=== PATIENT | male | born 1980 | race Caucasian/White ===

== ENCOUNTER 2017-08-17 13:43 | Inpatient (IN) | payer OTHER, SELFPAY ==
[~2017-08-17 13:43] MED LIST: ISOVUE-370 76%-LOCM 1 ML ONE
[2017-08-17 15:16] LABS: #Eosinphils 0.1 thou/uL (0.0-0.7); #Neutrophils 8.5 thou/uL (1.40-6.50); %Basophils 0.1 % (0.0-1.0); %Eosinophils 1.2 % (0.0-10.0); %Lymphocytes 9.5 % (21.0-51.0); %Monocytes 9.2 % (0.0-10.0); Hemoglobin 14.9 g/dL (14.0-18.0); Mean Corpuscular HGB CONC 33.4 g/dL (32.0-36.0); Mean Corpuscular Hemoglobin 30.4 pg (27.0-31.0); Mean Corpuscular Volume 91.1 fl (80.0-94.0); Mean Platelet Volume 7.5 fL (7.4-10.4); Platelet Count 279 thou/uL (130-400); RBC Distribution Width 11.6 % (11.5-14.5); Red Blood Cell (RBC) Count 4.91 mill/uL (4.70-6.10); White Blood Cell (WBC) Count 10.6 thou/uL (4.8-10.8)
[2017-08-17] MEDS ORDERED: Ondansetron HCl/PF 4 MG/2 ML Vial ONE (15:18)
[2017-08-17] MEDS ORDERED: Fentanyl 100 MCG/2 ML VIAL ONE (15:19)
[2017-08-17 15:38] LABS: ALT (SGPT) 16 U/L (8-55); AST (SGOT) 19 U/L (5-34); Albumin 4.3 g/dL (3.5-5.0); Alkaline Phosphatase 64 U/L (40-150); Anion Gap 15 mmol/L (10-20); BUN (Urea Nitrogen) 6 mg/dL (8.9-20.6); Bilirubin, Total 0.5 mg/dL (0.2-1.2); Calc. Creatinine Clearance 0 mL/min (70-130); Calcium 9.2 mg/dL (7.8-10.44); Carbon Dioxide 23 mmol/L (22-29); Chloride 101 mmol/L (98-107); Estimated GFR-MDRD Greater than 90; Globulin 2.7 g/dL (2.4-3.5); Glucose 90 mg/dL (70-105); Lipase 14 U/L (8-78); Potassium 3.9 mmol/L (3.5-5.1); Sodium 135 mmol/L (136-145)
--- NOTE | 2017-08-17 15:42 | CT ---
CT OF ABDOMEN AND PELVIS PERFORMED WITH INTRAVENOUS CONTRAST ENHANCEMENT: 08/17/17 HISTORY: Right lower quadrant pain. The lung bases are clear. The liver, spleen, pancreas, and gallbladder regions appear unremarkable. Right and left adrenal glands and right and left kidneys are normal in appearance. There is no signif icant periaortic or mesenteric adenopathy. There is evidence of bowel wall thickening of the terminal ileum. This is a fairly long segment with bowel wall thickening. The appendix is normal. There is some free fluid tracking along the cecum and actually extending into a fat containing right inguinal hernia. There is free fluid deep within the pelvis also seen. IMPRESSION: Bowel wall thickening over a fairly long segment of the terminal ileum with some free fluid tracking along the cecum into a fat containing right inguinal hernia as well as some free fluid in the cul-de- sac. This bowel wall thickening in a patient of this age would be most likely related to an inflammat ory process such as Crohn's disease, ischemic or infectious process would be considered less likely b ut not excluded. POS: MARINO
[2017-08-17] MEDS ORDERED: metroNIDAZOLE 500 MG/100 ML BAG ONE (16:09)
[2017-08-17 16:49] LABS: Bilirubin Negative (Negative); Blood, Urine Negative (Negative); Clarity CLEAR (Clear); Glucose, Urine (Dipstick) Negative (Negative); Leukocyte Negative (Negative); Nitrite Negative (Negative); Protein, Urine (Dipstick) Negative (Neg-Trace); Specific Gravity, Urine 1.025 (1.002-1.036); Urobilinogen 0.2 mg/dL (0.2-1.0)
[2017-08-17] MEDS ORDERED: Ondansetron ODT 4 MG TAB SL PRN (18:10)
[2017-08-17] MEDS ORDERED: Fentanyl 100 MCG/2 ML VIAL SLOW IVP PRN (18:10)
[2017-08-17] MEDS ORDERED: Ondansetron HCl/PF 4 MG/2 ML Vial IVP PRN (18:10)
[2017-08-17] MEDS ORDERED: Sodium Chloride 0.9% 1,000 ML IV SCH (18:15)
--- NOTE | 2017-08-17 18:22 | PDOC.EVN ---
Event Note - Event Note Event Note: 1. colitis. terminal ileitis 2. abdominal pain plan: see orders
[2017-08-17] MEDS ORDERED: Labetalol 100 MG TAB PO PRN (18:25)
[2017-08-17] MEDS: Sodium Chloride 0.9% 1,000 ML IV SCH (18:38)
[2017-08-17 18:39] VITALS: BMI 25.0
--- NOTE | 2017-08-17 20:47 | CON ---
DATE OF CONSULTATION: 08/17/2017 REASON FOR CONSULTATION: Terminal ileitis. CONSULTING PHYSICIAN: Dr. Scottie Forrest. HISTORY OF PRESENT ILLNESS: The patient is a 37-year-old male with past medical history of periphera l neuropathy and hypertension, presenting with acute onset of abdominal pain. He said that the patie nt states that he was in his usual state of health until approximately 2 days ago when he had the acu te onset of right lower quadrant abdominal pain, characterized as sharp/stabbing in nature, nonradiat ing, and with a severity of 8-9/10. The pain is worse with movement and eating both solids and liqui ds, better with lying still and not having a bowel movement. The pain was also initially associated with increased diarrhea, having approximately 3-4 semisolid to watery bowel movements during the init ial first 24 hours; however, after this initial bout of diarrhea, he has not had any additional bowel movements. Associated symptoms include mild nausea without vomiting, subjective fevers and chills. The patient currently denies any nausea, vomiting, fevers, chills, hematemesis, melena, hematochezia , odynophagia, dysphagia, new rashes, new arthropathy, sudden changes in vision or recent exposure to sick contacts. Of note, the patient states that he ate deviled eggs the night prior to the onset of his symptoms ki t had been in his fridge for approximately 5-7 days prior to consumption. 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 While in the E R, he was ultimately treated with IV fluids and oral antibiotics. REVIEW OF SYSTEMS: Ten category review of systems was obtained with all responses negative except fo r the pertinent positives as listed in the HPI. PAST MEDICAL HISTORY: As per HPI. PAST SURGICAL HISTORY: None. FAMILY HISTORY: Stroke, diabetes, and cirrhosis?, no stated complaints of inflammatory bowel disease or GI malignancy. SOCIAL HISTORY: He drinks approximately 2-3 beers daily. Denies any tobacco or illicit drug use. OUTPATIENT MEDICATIONS: None. ALLERGIES: CITRIC ACID. PHYSICAL EXAMINATION: VITAL SIGNS: Temperature of 97.9, pulse 69, blood pressure 125/81, respiratory rate 20, satting 98% on room air. GENERAL: The patient is lying in bed, in mild distress. He is alert and oriented x4. NECK: Supple. No JVD noted. CARDIOVASCULAR: Regular rate and rhythm with no discernible murmurs, gallops or rubs. RESPIRATORY: Clear to auscultation bilaterally with no discernible wheezes or rales. ABDOMEN: Abdominal hyperactive bowel sounds. Soft, nondistended. Tenderness to palpation in all ab dominal quadrants, but most especially in the right lower quadrant. Rebound tenderness present. EXTREMITIES: No cyanosis, clubbing or edema. LABORATORY DATA: CBC with a white blood cell count 10.6, hemoglobin 14.9, hematocrit 44.7, platelets 279. Chemistry with a sodium of 135, potassium 3.9, chloride 101, CO2 23, BUN 6, creatinine 0.82, g lucose 90, AST 19, ALT 16, alkaline phosphatase 64, total bilirubin 0.5, lipase 14, albumin 4.3. IMAGING STUDIES: CT of the abdomen and pelvis obtained on 08/17/2017 showed a long segment of bowel wall thickening of the terminal ileum with free fluid surrounding the cecum and extending into the ri ght pericolic gutter. ASSESSMENT AND PLAN: The patient is a 37-year-old male with past medical history of peripheral neuro pauly and hypertension, presenting with acute onset of abdominal pain and diarrhea. Abdominal pain/terminal ileitis. The patient is presenting with acute onset of right lower quadrant abdominal pain with no clear inciting factors with the pain exhibiting rebound tenderness on physical examination. He does have a history of recent consumption of deviled eggs that had been in the refr igerator for some time, raising concern for possible infectious etiology for his current pain and sola rrhea. 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 With his history o f dysentery, approximately 5-6 years ago, the diagnosis of recurrent inflammatory bowel disease is no t outside of question with the predominant IBD diagnosis being Crohn's disease. Differential could a lso include vasculitis, spondyloarthropathies, ischemia, NSAID use or infiltrative disease including amyloid or sarcoid. RECOMMENDATIONS: 1. We would obtain stool studies for probable infectious pathology and tailor antibiotics to particu lar pathogen. These infectious studies would include Clostridium difficile, stool studies, ova and p arasites, stool culture for Campylobacter. We would also obtain QuantiFERON TB for possible tubercul osis and histoplasmosis antigen, serum antigen and antibody. 2. We would avoid all NSAIDs during this hospitalization as it could contribute to the current clini benjy picture. 3. We will obtain antinuclear antibody for possible autoimmune reaction and vasculitis. 4. We will hold off on colonoscopy for now until infectious workup is completed and/or negative; how ever, the patient's pain continues to persist despite IV fluids and antibiotics with strongly conside r colonoscopy at that time for evaluation of possible IBD. We will continue to follow. Please call with any additional questions.
[2017-08-17] MEDS: Heparin 5,000 UNITS/ML VIAL SC SCH (22:01)
[2017-08-17] MEDS: metroNIDAZOLE 500 MG in Premix Bag 1 BAG IVPB SCH (23:55)
[2017-08-18 04:29] LABS: #Eosinphils 0.3 thou/uL (0.0-0.7); #Lymphocytes 1.5 thou/uL (1.20-3.40); #Monocytes 0.7 thou/uL (0.11-0.59); %Basophils 0.2 % (0.0-1.0); %Eosinophils 4.6 % (0.0-10.0); %Lymphocytes 23.3 % (21.0-51.0); %Monocytes 11.2 % (0.0-10.0); %Neutrophils 60.7 % (42.0-75.0); Hemoglobin 13.1 g/dL (14.0-18.0); Mean Corpuscular HGB CONC 33.5 g/dL (32.0-36.0); Mean Corpuscular Hemoglobin 31.4 pg (27.0-31.0); Mean Corpuscular Volume 93.7 fl (80.0-94.0); Mean Platelet Volume 8.3 fL (7.4-10.4); Platelet Count 241 thou/uL (130-400); RBC Distribution Width 11.5 % (11.5-14.5); Red Blood Cell (RBC) Count 4.18 mill/uL (4.70-6.10); White Blood Cell (WBC) Count 6.5 thou/uL (4.8-10.8)
[2017-08-18 04:32] LABS: Anion Gap 13 mmol/L (10-20); BUN (Urea Nitrogen) 5 mg/dL (8.9-20.6); Calc. Creatinine Clearance 155 mL/min (70-130); Calcium 8.7 mg/dL (7.8-10.44); Carbon Dioxide 23 mmol/L (22-29); Chloride 105 mmol/L (98-107); Estimated GFR-MDRD Greater than 90; Glucose 95 mg/dL (70-105); Potassium 3.9 mmol/L (3.5-5.1); Sodium 137 mmol/L (136-145)
--- NOTE | 2017-08-18 08:31 | HP ---
CHIEF COMPLAINT: Abdominal pain. HISTORY OF PRESENT ILLNESS: The patient is a 37 years old male with a past medical history of hypertension, diet controlled, now came to the ER complaining of abdominal pain. The patient started having abdominal pain 2 days back. Lower abdomen, cramping kind of pain associated with some nausea. Complains of some loose stools. Pain is a cramping to stabbing kind of pain, intermittent. He had similar episode of pain 6 years back. Denies any fever, denies any chills, denies any cough, denies sputum production. The patient's pain persisted so he came to the ER. PAST MEDICAL HISTORY: Elevated blood pressure. PAST SURGICAL HISTORY: None. SOCIAL HISTORY: Denies smoking, denies alcohol, denies any drugs. MEDICATIONS: Reviewed. FAMILY HISTORY: Denies any heart problems. REVIEW OF SYSTEMS: Constitutional: Denies any fever, denies any chills. Eyes : Denies vision problems. Ears: Denies any hearing loss. Neck: Denies any neck pain. Cardiovascular System: Denies any chest pain. Respiratory System: Denies any cough, denies sputum production. Gastrointestinal: Positive for abdominal pain. Denies nausea, denies vomiting. Genitourinary: No dysuria. Integumentary: Denies any rash. Central Nervous System: Denies syncope, denies lightheadedness. Psychiatric: Denies anxiety. All other review of systems are reviewed and are negative. PHYSICAL EXAMINATION: CONSTITUTIONAL/VITAL SIGNS: At the time of H&P performed, temperature is 97.9, heart rate 69, respiratory rate 20, pulse ox 98% on room air and blood pressure is 127/81. GENERAL APPEARANCE: The patient appears comfortable. HEENT: Pupils are equal, round, and reactive. Anterior nares patent. Nose normal. Ears normal. Teeth intact. Tongue is moist. NECK: Supple. No JVD. CARDIOVASCULAR SYSTEM: S1 and S2 present. Regular rate and rhythm. No murmurs , no rubs, no gallops. RESPIRATORY SYSTEM: No wheezing, no rhonchi. Breath sounds present bilaterally. GASTROINTESTINAL: Abdomen is mild and tender to palpate. No guarding, no rebound tenderness. Distended. GENITOURINARY: No suprapubic tenderness. CRANIAL NERVOUS SYSTEM: Cranial nerves intact. Follows commands. Strength intact. Sensory intact. INTEGUMENT: No rashes seen. LABORATORY DATA: Labs at the time of H&P performed; sodium 135, potassium 3.9, chloride 101, CO2 of 23, BUN of 6 and creatinine 0.82. White count 10.6, hemoglobin 14.9 and platelet count is 279. IMAGING DATA: CT abdomen and pelvis showed bowel wall thickening of the terminal ileum with some free fluid tracking along the cecum into fat and in the cul-de-sac, possible Crohn disease versus ischemic or infectious process. ASSESSMENT AND PLAN: The patient is 37 years old male. 1. Abdominal pain, rule out infectious colitis versus ischemic colitis. Plan to consult GI to evaluate the patient. Plan to keep patient n.p.o. Plan to start the patient on IV Cipro and Flagyl. 2. Abdominal pain. P.r.n. pain medications. 3. History of hypertension. Blood pressure controlled at this time. We will monitor the patient closely. The case was discussed in detail with the patient. YUE
[2017-08-18] MEDS: metroNIDAZOLE 500 MG in Premix Bag 1 BAG IVPB SCH ×2 (08:43→16:11)
[2017-08-18] MEDS: Heparin 5,000 UNITS/ML VIAL SC SCH ×3 (08:44→21:42)
[2017-08-18] MEDS ORDERED: FLU VACC QS2017-18 36 mo. & older 0.5 ML SYRINGE IM ONE (09:00)
[2017-08-18] MEDS: Fentanyl 100 MCG/2 ML VIAL SLOW IVP PRN ×2 (09:34→21:05)
[2017-08-18] MEDS: Sodium Chloride 0.9% 1,000 ML IV SCH ×2 (09:43→23:17)
[2017-08-18 13:01] LABS: ANA Symphony (Qualitative) Negative (Negative); dsDNA IgG Antibody Less than 0.5 IU/mL (<10 Negative)
--- NOTE | 2017-08-18 13:23 | PDOC.PN ---
- Subjective Encounter Start Date: 08/18/17 Encounter Start Time: 10:00 Subjective: has abd pain and epigastric burning on eating -: no nausea -: no blood in stools - Objective MAR Reviewed: Yes Vital Signs & Weight: Vital Signs (12 hours) Temp Pulse Resp BP Pulse Ox 08/18/17 11:27 98.1 F 69 16 113/73 97 08/18/17 07:35 97.6 F 68 16 117/69 97 08/18/17 03:45 97.6 F 76 16 106/64 96 Weight Weight 185 lb I&O: 08/17/17 08/18/17 08/19/17 06:59 06:59 06:59 Intake Total 1380 Output Total 1040 Balance 340 Result Diagrams: 08/18/17 03:50 08/18/17 03:50 Phys Exam - Physical Examination HEENT: PERRLA, moist MMs Neck: no JVD, supple Respiratory: no wheezing, no rales Cardiovascular: RRR, no significant murmur Gastrointestinal: soft, no distention, positive bowel sounds no rigidity or guarding Musculoskeletal: no edema, pulses present Neurological: non-focal, moves all 4 limbs Psychiatric: normal affect, A&O x 3 Dx/Plan (1) Gastroenteritis Code(s): K52.9 - NONINFECTIVE GASTROENTERITIS AND COLITIS, UNSPECIFIED Status : Acute Comment: ?crohns (2) Abdominal pain Code(s): R10.9 - UNSPECIFIED ABDOMINAL PAIN Status: Acute Qualifiers: Abdominal location: generalized Qualified Code(s): R10.84 - Generalized abdominal pain - Plan is on cipro and flagyl, stool studies are -ve for inf etiology -: oral solid diet now -: gentle iv hydration -: fentanyl prn -: further w/u per GI advice * . Review of Systems - Medications/Allergies Allergies/Adverse Reactions: Allergies Allergy/AdvReac Type Severity Reaction Status Date / Time citric acid Allergy Verified 01/31/16 00:43 Medications: Current Medications Fentanyl (Sublimaze) 50 mcg SLOW IVP Q2H PRN PRN Reason: Breakthrough Pain Last Admin: 08/18/17 09:34 Dose: 50 mcg Heparin Sodium (Porcine) (Heparin) 5,000 units SC TID MIRIAM Last Admin: 08/18/17 08:44 Dose: 5,000 units Metronidazole 500 mg/ Device 100 mls @ 100 mls/hr IVPB [id number] [facility] Last Admin: 08/18/17 08:43 Dose: 100 mls Sodium Chloride (Normal Saline 0.9%) 1,000 mls @ 75 mls/hr IV [id number] [facility] Last Admin: 08/18/17 09:43 Dose: 1,000 mls Ciprofloxacin/Dextrose 400 mg/ (Device) 200 mls @ 200 mls/hr IVPB Q12HR [facility] Last Admin: 08/18/17 09:35 Dose: 200 mls Labetalol HCl (Normodyne) 100 mg PO Q4H PRN PRN Reason: SBP Greater Than 180 Ondansetron HCl (Zofran) 4 mg IVP Q6H PRN PRN Reason: Nausea/Vomiting Stop: 08/22/17 04:00 Sodium Chloride (Flush - Normal Saline) 10 ml IVF Q12HR [facility] Last Admin: 08/18/17 09:44 Dose: Not Given Sodium Chloride (Flush - Normal Saline) 10 ml IVF PRN PRN PRN Reason: Saline Flush Tramadol HCl (Ultram) 50 mg PO Q6H PRN PRN Reason: Pain
[2017-08-18] MEDS ORDERED: GoLYTELY 4,000 ml Bottle PO SCH (15:45)
[2017-08-18] MEDS: traMADol HCl 50 MG TAB PO PRN (16:13)
--- NOTE | 2017-08-18 20:39 | PRG ---
DATE OF SERVICE: 08/18/2017 REASON FOR CONSULTATION: Terminal ileitis. SUBJECTIVE: The patient states that his abdominal pain has significantly improved when compared to o n admission. He states that he is able to move around the room, sit up in his bed, and actually walk ed to the bathroom with only minimal amounts of pain. He does continue to get some right lower quadr ant abdominal pain especially with pressure to the area and with certain movements, but is significan tly improved from previous. Currently, denies any nausea, vomiting, fevers, chills, odynophagia, dys phagia, or GI bleeding. OBJECTIVE: VITAL SIGNS: Temperature 97.5, pulse 67, blood pressure 130/88, respiratory rate 14, satting 100% on room air. GENERAL: The patient lying in bed, in no acute distress. He is alert and oriented x4. CARDIOVASCULAR: Regular rate and rhythm with no discernible murmurs, gallops or rubs. RESPIRATORY: Clear to auscultation bilaterally with no discernible wheezes or rales. ABDOMEN: Normoactive bowel sounds, soft, nondistended. Tenderness to palpation primarily in the rig ht lower quadrant without rebound tenderness. EXTREMITIES: No cyanosis, clubbing or edema. LABORATORY DATA: CBC with a white blood cell count of 6.5, hemoglobin 13.1, hematocrit 39.2, platele ts 241. Chemistry with a sodium 137, potassium 3.9, chloride 105, CO2 of 23, BUN 5, creatinine 0.76, glucose 95. Antinuclear antibody negative. Stool studies including C. diff, stool culture, Campylo bacter, E. coli, Giardia and cryptosporidium were all negative. IMAGING STUDIES: No current GI imaging is available for review. ASSESSMENT: The patient is a 37-year-old male with past medical history of peripheral neuropathy and hypertension presenting with acute onset of abdominal pain, diarrhea, and terminal ileitis on imagin g. Abdominal pain/terminal ileitis. The patient presented with acute onset of right lower quadrant abdo brigida pain with no clear inciting factors, although there was some concern for possible consumption o f spoiled food; however, on admission, he was noted by CT scan to have significant wall thickening of the terminal ileum consistent with terminal ileitis. So far the infectious workup has been negative with tuberculosis and histoplasmosis studies still pending; however, given the negative workup thus far and improvement in his clinical status, Crohn's disease does need to be ruled out during this hos pitalization and therefore colonoscopy is recommended at this time. Differential could also include vasculitis (unlikely), ischemia (unlikely), NSAID use (unlikely) or infiltrative disease. RECOMMENDATIONS: 1. We would follow up on the remaining studies including histoplasmosis and tuberculosis test. 2. We would avoid all NSAIDs during this hospitalization as it could contribute to current clinical picture. 3. We will plan for colonoscopy tomorrow morning for evaluation of the colon and terminal ileum for possible inflammatory bowel disease. PLAN: We will place the patient on clear liquid diet today with GoLYTELY prep tonight in preparation for the procedure. We will continue to follow. Please call with any additional questions.
[2017-08-19] MEDS: metroNIDAZOLE 500 MG in Premix Bag 1 BAG IVPB SCH ×2 (00:22→11:01)
[2017-08-19 08:02] VITALS: BP 115/78; TEMP 97.8
[2017-08-19] MEDS ORDERED: Promethazine HCl 25 MG/ML VIAL IM PRN (09:52)
[2017-08-19] MEDS ORDERED: Ondansetron HCl/PF 4 MG/2 ML Vial IVP PRN (09:52)
[2017-08-19] MEDS ORDERED: Promethazine HCl 25 MG/ML VIAL SLOW IVP PRN (09:52)
--- NOTE | 2017-08-19 10:26 | OP ---
DATE OF PROCEDURE: 08/19/2017 PROCEDURE PERFORMED: Colonoscopy with biopsy. INDICATION FOR PROCEDURE: Abnormal GI imaging. DESCRIPTION OF PROCEDURE: After the risks and benefits of the procedure were explained to the patien t including risks of bleeding, infection, perforation, reaction to anesthesia and/or pain, informed c onsent was obtained. The patient was then taken to the endoscopy suite where deep sedation was admin istered via propofol and anesthesia support. The standard colonoscope was then introduced into the r ectum and advanced to the terminal ileum with the findings listed below. The quality of the prep was good with some solid stool seen in the terminal ileum that was responsive to aggressive irrigation a nd suctioning. The patient tolerated the procedure well with no immediate perioperative complication s. MARYLIN: A small external hemorrhoid was noted on digital external rectal examination, normal sphincter tone. COLON FINDINGS: A large amount of solid stool was seen in the terminal ileum, but was amenable to ag gressive irrigation and suctioning with adequate views obtained of the terminal ileum up to 25-30 cm past the ileocecal valve of the mucosa seen in the terminal ileum. There was no evidence of erosions , ulcerations, mass lesions, active/recent bleeding or significant wall thickening/edema. Random bio psies were taken from the terminal ileum for evaluation of the mucosal given the abnormal GI findings noted on admission. Otherwise, normal mucosa was seen at the appendiceal orifice and ileocecal valv e. Normal appearing mucosa was seen in the cecum, ascending colon, transverse colon, descending colo n, sigmoid colon, and rectum. Small internal hemorrhoids were seen on rectal retroflexion. IMPRESSION: 1. Small internal and external hemorrhoids. 2. Otherwise, normal colonoscopy with no etiology of thickened terminal ileum seen during this exami nation. RECOMMENDATIONS: 1. Would follow up on remaining infectious disease studies including histoplasma and tuberculosis te sting. 2. At this time, an infectious etiology is much more likely with the patient responding well to anti biotic therapy of ciprofloxacin and metronidazole. At this time, I would continue both Cipro and Fla gyl for a 7-day course as part of treatment for probable infectious etiology creating the terminal il eitis. 3. We will follow up on biopsy results of biopsies obtained today. 4. Would have patient follow up in the GI clinic in 2 weeks after discharge for followup on biopsy r esults and reassessment of clinical status at that time. 5. With improvement in the patient's clinical status and direct visualization of the terminal ileum performed today, the patient can be discharged from the GI standpoint with followup in GI clinic. We will sign off at this time. Please call with any additional questions.
[2017-08-19] MEDS: traMADol HCl 50 MG TAB PO PRN (11:02)
--- NOTE | 2017-08-19 14:39 | PDOC.PN ---
- Subjective Encounter Start Date: 08/19/17 Encounter Start Time: 11:40 Subjective: feels better -: had colonoscopy this am - Objective MAR Reviewed: Yes Vital Signs & Weight: Vital Signs (12 hours) Temp Pulse Resp BP Pulse Ox 08/19/17 10:25 97.8 F 69 16 08/19/17 07:58 97.8 F 69 16 115/78 94 L 08/19/17 03:38 97.5 F L 68 14 121/78 99 Weight Weight 185 lb I&O: 08/18/17 08/19/17 08/20/17 06:59 06:59 06:59 Intake Total 1380 5860 Output Total 1040 500 Balance 340 5360 Result Diagrams: 08/18/17 03:50 08/18/17 03:50 Phys Exam - Physical Examination HEENT: PERRLA, moist MMs Neck: no JVD, supple Respiratory: no wheezing, no rales Cardiovascular: RRR, no significant murmur Gastrointestinal: soft, non-tender, positive bowel sounds Musculoskeletal: no edema, pulses present Neurological: non-focal, moves all 4 limbs Psychiatric: normal affect, A&O x 3 Dx/Plan (1) Gastroenteritis Code(s): K52.9 - NONINFECTIVE GASTROENTERITIS AND COLITIS, UNSPECIFIED Status : Acute Comment: ?crohns (2) Abdominal pain Code(s): R10.9 - UNSPECIFIED ABDOMINAL PAIN Status: Acute Qualifiers: Abdominal location: generalized Qualified Code(s): R10.84 - Generalized abdominal pain - Plan colonoscopy with biopsies were taken this am -: no abnormal findings were seen -: dc pt home on flagyl and cipro -: d/w and patient * .
[2017-08-19] MEDS ORDERED: Heparin 5,000 UNITS/ML VIAL SC SCH (15:00)
[2017-08-19] MEDS ORDERED: PROPOFOL 200 MG/20 ML VIAL ONE (15:54)
--- NOTE | 2017-08-19 16:49 | DIS ---
DATE OF ADMISSION: 08/17/2017 DATE OF DISCHARGE: 08/19/2017 PRIMARY DISCHARGE DIAGNOSES: Likely gastroenteritis. PROCEDURES DONE DURING HOSPITALIZATION: The patient had abdominal and pelvic CAT scan done, which showed bowel wall thickening over a fairly long segment of the terminal ileum with some free fluid tracking along cecum into the fat containing right inguinal hernia. He has had colonoscopy done this morning, which showed a normal colonoscopy with no etiology of thickened terminal ileum seen during this examination. Small internal and external hemorrhoids were seen. Stool cultures have been negative for C. diff, Shigella, Campylobacter. H&H was 13 and 39, platelet count 241, BUN and creatinine was 5 and 0.7. LEXY screen was negative. Anti-double stranded DNA IgG was less than 0.5. DISCHARGE MEDICATIONS: Ciprofloxacin 500 mg p.o. twice daily for 7 days, Flagyl 500 mg p.o. 3 times daily for 1 week, Bentyl p.r.n. ALLERGIES: Allergic to CITRIC ACID. INPATIENT CONSULTS: Dr. Javi Falk. DISCHARGE PLAN: Patient to follow up with Dr. Javi Falk as advised and primary care physician in 1 week. BRIEF COURSE DURING HOSPITALIZATION: Patient initially got admitted with complaints of abdominal pain with associated nausea. He had some loose stools as well. Initial CT of the abdomen done was suspicious for possible Crohn's with a long segment of ileum showing signs of inflammation. He has had consultation with Dr. Javi Falk for Gastroenterology. All his stool samples have been negative for any infectious etiology. A colonoscopy done did not reveal any abnormal pathology in the ileal area. Biopsies have been obtained there. He needs to follow up with Dr. Javi Falk in 2 weeks, to follow up on the biopsy results. As the patient responded well to Cipro and Flagyl, he will be given a course for 7 days to continue per GI advice. He is otherwise hemodynamically stable and will be shortly discharged home. Please see a face- to-face documentation on [facility] for the day of discharge. YUE
== END 2017-08-19 13:45 | disposition home or self-care (01) | DRG 392 ==
LOC: ERS 13:43 → SJJU 17:08
PROVIDERS: ADMIT Internal Medicine; ATTEND Internal Medicine
PROC: 0DBB8ZX Excision of Ileum, Via Natural or Artificial Opening Endoscopic, Diagnostic (ICD-10-PCS; principal; 2017-08-19)
DX: K52.9 Noninfective gastroenteritis and colitis, unspecified (principal); I10 Essential (primary) hypertension; G62.9 Polyneuropathy, unspecified; K64.4 Residual hemorrhoidal skin tags; K64.8 Other hemorrhoids
CPT/HCPCS: 36415; 74177; 80048; 80053; 81003; 83630; 83690; 85025; 86038; 86225; 86480; 87045; 87046; 87324; 87328; 87329; 87385; 87449; 87899; 88305; 96361; 96365; 96368; 96375; A4216; J0744; J1644; J1956; J2405; J2704; J3010

== ENCOUNTER 2018-06-29 15:11 | Emergency (ER) | payer SELFPAY ==
[2018-06-29] MEDS ORDERED: traMADol HCl 50 MG TAB ONE (17:38)
[2018-06-29] MEDS ORDERED: Ketorolac Tromethamine 60 MG/2 ML VIAL ONE (17:38)
[2018-06-29 18:42] LABS: Bilirubin Negative (Negative); Blood, Urine Negative (Negative); Clarity CLEAR (Clear); Glucose, Urine (Dipstick) Negative (Negative); Leukocyte Negative (Negative); Nitrite Negative (Negative); Protein, Urine (Dipstick) Negative (Neg-Trace); Specific Gravity, Urine 1.007 (1.002-1.036); Urobilinogen 0.2 mg/dL (0.2-1.0)
== END 2018-06-29 20:22 | disposition home or self-care (01) ==
LOC: ERS 15:11
DX: M54.42 Lumbago with sciatica, left side (principal); I10 Essential (primary) hypertension
CPT/HCPCS: 81003; 96372; J1885

== ENCOUNTER 2021-03-27 12:21 | Emergency (ER) | payer SELFPAY ==
[2021-03-27] MEDS ORDERED: Proparacaine 0.5% Opth 15 ML BOT ONE (12:43)
[2021-03-27] MEDS ORDERED: Fluorescein Opthalmic Strip ONE (12:44)
== END 2021-03-27 13:05 | disposition home or self-care (01) ==
LOC: ERS 12:21
DX: T15.02XA Foreign body in cornea, left eye, initial encounter (principal); I10 Essential (primary) hypertension; F17.220 Nicotine dependence, chewing tobacco, uncomplicated; Z79.899 Other long term (current) drug therapy
CPT/HCPCS: 99283